=== PATIENT | female | born 1965 | race African-American/Black ===

== ENCOUNTER → 2017-11-02 | Outpatient (CLI) | payer OTHER ==
[~2017-11-02] MED LIST: B-100 COMPLEX1 EAC1; FLAGYL500 MG PO; FLEXERIL PO; HYDROCODON-ACE1 EAC7 PO; HYDROCODONE-AP1 EAC6 PO; MEDROLDOSEPACK PO; NOHOMEMEDICATIONS; NORCO 5-325 TA1 EACH PO; PERCOCET 5-3251 EACH PO; PREDNISONE 20 M20 MG PO; VALIUM5 MG PO; VICODIN 5-5001 EACH PO; VITAMIN D400 UNI1; ZOFRAN ODT4 MG PO
== END ==
LOC: RAD 14:51
DX: Z12.31 Encounter for screening mammogram for malignant neoplasm of breast (principal)

== ENCOUNTER → 2019-02-19 | Outpatient (CLI) | payer OTHER ==
[~2019-02-19] VITALS: Ht 154.9 cm; Wt 66.2 kg
[~2019-02-19] MED LIST changes: +CYMBALTA30 MG PO; +FLONASE 0.05%50 MCG NASAL; +NABUMETONE 500500 M1 PO; +NICOTINE PATCH1 EAC2 TOP; +TRAMADOL 50 MG50 MG PO; +VITAMIN D5000 UNIT PO
[2019-02-19 13:00] VITALS: BP 133/64
--- NOTE | 2019-02-19 13:15 | NUR ---
Pain Clinic Assessment: 1. History of Osteoarthritis: DENIES History of Rheumatoid Arthritis: DENIES 2. Height: 5 ft. 1 in. 154.9 cm. Weight: 146.0 lb. oz. 66.225 kg. Patient's BMI: 27.6 3. Vital Signs: BP: 133/64 Pulse: 77 Resp: 16 Temp: 02 Sat: 100 ECG Mon: 4. Pain Intensity: 7-9 5. Fall Risk: Dizziness: N Needs help standing or walking: N Fallen in the last 3 months: N Fall risk comments: 6. Patient on Blood Thinner: None 7. History of Hypertension: N 8. Opioid Therapy greater than 6 weeks: N Opiate Contract Signed: 9. Risk Assessment Tool Provided: 10. Functional Assessment Tool: 11. Recreational Drug Use: Drug Type: Tobacco Use: Current Every Day Smoker Tobacco Type: Cigars Amount or Packs/day: How Many Years: 3 Alcohol Use: No Frequency: Quant:
--- NOTE | 2019-02-26 13:03 | HPC ---
[facility] [place] [address] PAIN MANAGEMENT CONSULTATION Name: JOHNATHAN RODRIGUEZ Room #: REG [facility] Sergei#: [id number] Admission: 02/19/19 ������������������ Attend Phys: Cristino Elliott DO Discharge: ������������������ Date of : 61 Report #: [id number] THIS REPORT FOR: //name// CC: Cristino Hamlin MD DATE OF SERVICE: 02/19/2019 REFERRING PHYSICIAN: Michelle Hamlin M.D. CHIEF COMPLAINT: Low back pain and left lower extremity pain with paresthesias. HISTORY OF PRESENT ILLNESS: As you know, the patient is a 53-year-old female who has been referred back to our service after being last seen in 2010. She now complains of low back pain, left lower extremity pain for which she states her symptoms began in 10/2018. She describes the pain as burning, aching, sharp and stabbing. She places current pain score 7-9/10, daily average at 8-9/10, worst pain has been is 10/10. She reports that she has undergone one epidural injection under fluoroscopic guidance with a physician in [facility], but she did not care for her bedside manner, nor did she care for the treatment options provided. She subsequently returned to talk to her primary care physician who then referred the patient to our clinic to discuss treatment options for suspected lumbar radiculopathy. The patient reports that she has not been involved in any physical therapy nor has she undergone any conservative medication treatment options. She has been referred to our clinic to discuss treatment options for lumbar radicular symptoms. The patient reports today the pain is steady with intermittent brief and momentary exacerbations of symptoms. She indicates pain is burning, aching, throbbing, sharp, stabbing, tender and intermittent numbness and tingling. Placing current pain score at 9/10, daily average today at 7/10. She indicates pain is exacerbated with rest and relaxation. Pain tends to improve with activity. She has been referred to our clinic by her primary care physician to discuss potential treatment options for suspected lumbar radiculopathy. She comes to us today without any imaging studies or any further workup. PAST MEDICAL HISTORY: 1. Seasonal allergies. 2. Diabetes mellitus type 2. 3. Tobacco abuse. PAST SURGICAL HISTORY: 1. Tonsillectomy. 2. Carpal tunnel release. 3. Right ankle surgery. [address] [address] PAIN MANAGEMENT CONSULTATION Name: JOHNATHAN RODRIGUEZ Room #: REG [id number] Admission: 02/19/19 ������������������ Attend Phys: Cristino Elliott DO Discharge: ������������������ Date of : 61 Report #: [id number] SOCIAL HISTORY: The patient smokes 3 cigars per day. She has done this for greater than 3-5 years. She denies IV or illicit drug use. Denies any chronic alcohol use. She is an loan officer assistant. She is working, not receiving workmen's compensation or is trying to obtain disability benefits. She is not in litigation in regards to pain. REVIEW OF SYSTEMS: Positive for fatigue and weakness, numbness and tingling sensations and seasonal allergies. All other review of systems negative per 12-point review of systems other than those listed in history of present illness. Pain impact score 46/70 indicating [id number] interference of daily activities secondary to pain. IMAGING DATA: No imaging available. ALLERGIES: SULFA. CURRENT MEDICATIONS: Cholecalciferol 5000 units per day, tramadol 50 mg every 8 hours p.r.n. for pain, Nicoderm patch apply topically every day and fluticasone 2 sprays each nostril per day. PHYSICAL EXAMINATION: VITAL SIGNS: Blood pressure 133/64, pulse of 77 and respiratory rate 16 and unlabored. The patient is 100% on room air. Height 5 feet 1 inch tall, weight 146 pounds and BMI calculated 27.6. GENERAL: Well-developed, well-nourished, well-hydrated 53-year-old female appearing stated age, placing current pain score 7-9/10. HEENT: Normocephalic and atraumatic. Pupils equal, round and reactive to light. Extraocular muscles are intact. Sclerae nonicteric without injection. NEUROLOGICAL: Cranial nerves 2 through 12 grossly intact. Speech is fluent. The patient deemed a good historian. LUNGS: Clear. No wheeze, rhonchi or rales. CARDIOVASCULAR: Regular. No appreciable gallop and no rub. ABDOMEN: Soft, nontender and nondistended. Normoactive bowel sounds. EXTREMITIES: Show no clubbing, no cyanosis and no edema. MUSCULOSKELETAL: Lower extremity strength appears symmetrical 5/5, intact to light touch from L1 through S2 dermatomes. Seated straight leg raising negative. Supine straight leg raising mildly positive on the left. Dre's test negative. Modified Gaenslen's positive for axial low back pain. Gait normal and stance normal. Ankle clonus negative. Babinski is negative. Deep tendon reflexes 2+/4 patella and Achilles. ASSESSMENT: 1. Suspected lumbar radiculopathy. 2. Degeneration of the lumbar spine. 3. Chronic intractable pain. [address] [address] PAIN MANAGEMENT CONSULTATION Name: JOHNATHAN RODRIGUEZ Room #: REG [facility]#: [id number] Admission: 02/19/19 ������������������ Attend Phys: Cristino Elliott DO Discharge: ������������������ Date of : 61 Report #: [id number] PLAN: 1. The patient has been referred to our service to discuss treatment options for suspected lumbar radiculopathy. The patient has symptoms radiating down the left leg, exacerbated with certain activities, improves with nothing to date. She has been referred to our clinic to trial epidural injection under fluoroscopic guidance. The patient has had one epidural to date, she received from another physician here in the [place] area. She states she received some improvement but did not wish to return to that physician due to the disagreement the patient had in regards to treatment options. She was subsequently referred to our clinic. She comes to us today without imaging studies, so it is difficult for us to determine the source of the symptoms the patient is experiencing, but it does appear to be radicular in origin. Given that the distribution of symptoms, it appears to be on the L5 dermatomal distribution on the left. We discussed with the patient treatment options for lumbar radiculopathy today and the following was discussed with the patient. We discussed physical therapy, stretching exercises and core strengthening as a treatment option. We discussed the possibility of having the patient started on neuropathic pain medication and possible consistent nonsteroidal anti-inflammatory. We discussed epidural injection for which the patient was referred to our clinic and then, we discussed surgical options. After reviewing risks and benefits of all proposed treatment options, the patient chose to undergo a lumbar epidural injection under fluoroscopic guidance. The patient was advised risks and benefits of the lumbar epidural injection. These risks include but are not necessarily limited to bleeding, bruising, infection, worsening pain, no relief of pain, also risk of temporary or permanent muscle weakness, temporary or permanent nerve damage, possible paralysis, post-dural puncture headache and . The patient states understood and wished to proceed. 2. No medication changes made at today's visit. If medication changes are considered, we will be providing you information on dosing parameters how to start the medication and what to watch for side effects. We will be deferring to the primary team for initiation and continuation of medication management. 3. We will see the patient back in followup visit in approximately 30 days. At that time, review the efficacy of this second epidural injection in the 6 months. 4. We wish to thank the referring physician for the opportunity to see the patient in consultation. We will keep you apprised of response to treatment as we address suspected lumbar radiculopathy. Again, we wish to thank you for the opportunity to see the patient in consultation. PROCEDURE NOTE DESCRIPTION OF PROCEDURE: L5-S1 left paramedian epidural steroid injection [address] [address] PAIN MANAGEMENT CONSULTATION Name: JOHNATHAN RODRIGUEZ Room #: REG [facility] Mai#: [id number] Admission: 02/19/19 ������������������ Attend Phys: Cristino Elliott DO Discharge: ������������������ Date of : 61 Report #: [id number] under fluoroscopic guidance. This is the second procedure of the first series that the patient is undergoing. After obtaining written consent, the patient was taken back to the fluoroscopy suite, placed in a prone position with pillow under the abdomen to decrease lumbar lordosis. The skin overlying the lumbosacral area was then prepped and draped in aseptic fashion. The L5-S1 vertebral interspace was then identified by AP fluoroscopy. The skin and subcutaneous tissue overlying the target site of injection was anesthetized with 3 mL 1% lidocaine. A 20-gauge 3-1/2 inch Tuohy needle was then advanced under fluoroscopic guidance towards the epidural space using a left paramedian approach. The epidural space was identified using loss of resistance to air technique. After negative aspiration for heme or cerebrospinal fluid, a total of 1 mL of Omnipaque was injected. A lumbar epidurogram was confirmed using both AP and lateral fluoroscopy. After negative aspiration for heme or cerebrospinal fluid, 5 mL of a solution containing 2 mL 40 mg per mL, 80 mg total triamcinolone, 3 mL lidocaine 1% was injected in increments. Contrast spread was noted posterior epidural space. The needle was then retracted approximately half way and needle tract flushed with 1 mL of 1% lidocaine. Needle was then removed. There were no apparent sensory or motor deficits in the lower extremity following the procedure. A sterile bandage was placed over the injection site. The heart rate, pulse, oximetry and blood pressure were continuously monitored after the procedure. There were no apparent complications. The patient tolerated the procedure well and was carefully escorted to the recovery room in stable condition. There were no apparent complications. After meeting discharge criteria, the patient was then discharged home. ��������������������������������������������� <ELECTRONICALLY SIGNED> ���������������������������������������� By: Cristino Elliott DO ��������������������������������������������� 02/26/19 [id number] Cristino Elliott DO /nt
== END | disposition home or self-care (01) ==
LOC: PAIN
DX: M51.36 Other intervertebral disc degeneration, lumbar region (principal); G89.29 Other chronic pain; E11.9 Type 2 diabetes mellitus without complications; F17.210 Nicotine dependence, cigarettes, uncomplicated; Z98.890 Other specified postprocedural states; Z88.2 Allergy status to sulfonamides; Z79.899 Other long term (current) drug therapy